=== PATIENT | female | born 1950 | race American Indian/Alaskan Native ===

== ENCOUNTER 2019-01-01 09:10 | Day surgery (SDC) | payer MEDICARE ==
[2019-01-01 09:57] VITALS: BMI 27.8
[2019-01-01] MEDS ORDERED: Propofol 10 mg/ml Inj (20 ML) ONE (11:35)
[2019-01-01] MEDS ORDERED: Lidocaine Hydrochloride 5 ML INJ ONE (11:39)
[2019-01-01] MEDS ORDERED: Lactated Ringer's 500 ML IV SCH (11:45)
[2019-01-01 14:16] VITALS: RESP 18
[2019-01-01 14:21] VITALS: BP 148/65; PULSE 72; TEMP 98.2; O2SAT 99
== END 2019-01-01 13:45 | disposition home or self-care (01) ==
LOC: C.ENDO 09:10
PROVIDERS: ATTEND Internal Medicine Gastroenterology
DX: D12.4 Benign neoplasm of descending colon (principal); K62.5 Hemorrhage of anus and rectum; Z85.038 Personal history of other malignant neoplasm of large intestine; K64.1 Second degree hemorrhoids
CPT/HCPCS: 45380; 88305; J2704; J3010; J7120